=== PATIENT | male | born 1950 ===

== ENCOUNTER 2019-07-11 15:02 | Emergency (ER) | payer OTHER ==
[~2019-07-11] VITALS: Ht 172.7 cm; Wt 90.7 kg
[~2019-07-11 15:02] MED LIST: CATAFLAM50 MG PO; CEFADROXIL500 MG; DURICEF PO; ENALAPRIL MALEA20 MG PO; KEFLEX500 MG PO; KETO10TA2 PO; ORPH100T PO; PHOSPHASAL TAB1 EACH; URIN D.S. TABLE1 TAB PO; VASOTEC20 MG PO; ZYRTEC10 MG PO
== END 2019-07-11 16:42 | disposition home or self-care (01) ==
LOC: ER 15:02
DX: I16.1 Hypertensive emergency (principal); I10 Essential (primary) hypertension

== ENCOUNTER 2019-07-15 19:32 | Emergency (ER) | payer OTHER ==
[~2019-07-15] VITALS: Ht 172.7 cm; Wt 90.7 kg
[2019-07-15] MEDS ORDERED: PROTONIX40 MG (19:46)
== END 2019-07-15 21:57 | disposition home or self-care (01) ==
LOC: ER 19:32
DX: M51.34 Other intervertebral disc degeneration, thoracic region (principal); M54.89 Other dorsalgia